=== PATIENT | male | born 1985 | race Caucasian/White ===

== ENCOUNTER 2019-06-18 23:48 | Emergency (ER) | payer MEDICAID ==
[~2019-06-18] VITALS: Ht 162.6 cm; Wt 68.0 kg
[2019-06-18 23:50] VITALS: BP 136/88
--- NOTE | 2019-06-18 23:50 | NUR ---
TO BED # 12 AMBULATORY
--- NOTE | 2019-06-19 00:03 | NUR ---
PATIENT PRESENTS TO ED WITH C/O RIGHT HAND PAIN X 2 HOURS. PT WAS CHANGING LIGHTBULB AND LIGHTBULB BROKE. PT HAS LACERATION TO RIGHT HAND AT BASE OF 5TH DIGIT. BLEEDING CONTROLLED. PT STATES HE FEELS LIKE A PEICE OF GLASS IS STILL IN HAND. PT STATES HAVING TDAP VACCINE 1 YEAR AGO. DENIES N/V/D; SKIN IS PINK/WARM/DRY; AAOX4 WITH EVEN AND STEADY GAIT; LUNGS CLEAR BL; HR EVEN AND REGULAR; PT DENIES ANY FEVER, CP, SOB, OR COUGH AT THIS TIME; PATIENT STATES PAIN OF 8/10 AT THIS TIME; VSS; PATIENT POSITIONED FOR COMFORT; HOB ELEVATED; BEDRAILS UP X2; BED DOWN. ER MD MADE AWARE OF PT STATUS.
--- NOTE | 2019-06-19 00:06 | NUR ---
X RAY AT BEDSIDE
--- NOTE | 2019-06-19 00:20 | NUR ---
PT LAC CLEANED WITH NORMAL SALINE AND 4X4 GUAZE PADS, DOCTOR NOTIFIED
--- NOTE | 2019-06-19 01:45 | NUR ---
NO CHANGES FROM PREVIOUS ASSESSMENT. PT APPEARS TO BE IN NO DISTRESS. WILL CONTINUE TO MONTIOR.
[2019-06-19 01:56] VITALS: BP 130/88
== END 2019-06-19 01:56 | disposition home or self-care (01) ==
LOC: MED 23:48
DX: S61.031A Puncture wound without foreign body of right thumb without damage to nail, initial encounter (principal); X58.XXXA Exposure to other specified factors, initial encounter; Y93.89 Activity, other specified; Y92.89 Other specified places as the place of occurrence of the external cause; Y99.8 Other external cause status
CPT/HCPCS: 73130; 99283; Q0092